=== PATIENT | female | born 1945 | race Caucasian/White ===

== ENCOUNTER 2017-09-08 10:34 | Outpatient (CLI) | payer OTHER ==
[~2017-09-08 10:34] MED LIST: ULTRACET PO
== END 2017-09-08 10:41 | disposition home or self-care (01) ==
LOC: SONOGRAMA 10:34
DX: E04.2 Nontoxic multinodular goiter (principal)

== ENCOUNTER 2018-03-03 10:56 | Outpatient (CLI) | payer OTHER ==
[~2018-03-03] VITALS: Ht 157.5 cm; Wt 79.4 kg
[2018-03-03] MEDS ORDERED: ZANTAC150 M3 PO (12:07)
== END 2018-03-03 11:15 | disposition home or self-care (01) ==
LOC: OFIC 805 10:56
DX: E04.2 Nontoxic multinodular goiter (principal); J31.0 Chronic rhinitis; J34.2 Deviated nasal septum; R49.8 Other voice and resonance disorders; J37.0 Chronic laryngitis; H61.23 Impacted cerumen, bilateral

== ENCOUNTER 2018-03-11 18:01 | Emergency (ER) | payer OTHER ==
[~2018-03-11] VITALS: Ht 157.5 cm; Wt 79.4 kg
[~2018-03-11 18:01] MED LIST changes: +ZANTAC150 M3 PO
[2018-03-11] MEDS ORDERED: HYZAAR 100-251 EACH (18:12)
[2018-03-11] MEDS ORDERED: GLIMEPIRIDE2 MG (18:13)
[2018-03-11] MEDS ORDERED: JANUMET XR 50-1 EAC1 (18:13)
[2018-03-11] MEDS ORDERED: LIPITOR40 MG (18:13)
[2018-03-11] MEDS ORDERED: NORVASC10 MG (18:13)
[2018-03-11] MEDS ORDERED: IRON325 MG (18:14)
== END 2018-03-11 22:39 | disposition home or self-care (01) ==
LOC: ER 18:01
DX: R00.2 Palpitations (principal)

== ENCOUNTER 2018-09-09 11:55 | Outpatient (CLI) | payer OTHER ==
[~2018-09-09] VITALS: Ht 152.4 cm; Wt 79.4 kg
[~2018-09-09 11:55] MED LIST changes: +GLIMEPIRIDE2 MG; +HYZAAR 100-251 EACH; +IRON325 MG; +JANUMET XR 50-1 EAC1; +LIPITOR40 MG; +NORVASC10 MG
== END 2018-09-09 12:15 | disposition home or self-care (01) ==
LOC: OFIC 805 11:55
DX: K21.0 Gastro-esophageal reflux disease with esophagitis (principal); R22.1 Localized swelling, mass and lump, neck; R05 Cough

== ENCOUNTER 2018-10-11 11:53 | Outpatient (CLI) | payer OTHER ==
[~2018-10-11] VITALS: Ht 157.5 cm; Wt 79.4 kg
== END 2018-10-11 12:10 | disposition home or self-care (01) ==
LOC: OFIC 805 11:53
DX: K21.0 Gastro-esophageal reflux disease with esophagitis (principal); R05 Cough

== ENCOUNTER 2019-04-19 16:03 | Emergency (ER) | payer OTHER ==
[~2019-04-19] VITALS: Ht 157.5 cm; Wt 79.8 kg
[2019-04-19] MEDS ORDERED: ARICEPT5 MG (16:27)
== END 2019-04-19 22:23 | disposition home or self-care (01) ==
LOC: ER 16:03
DX: B33.8 Other specified viral diseases (principal); B96.0 Mycoplasma pneumoniae [M. pneumoniae] as the cause of diseases classified elsewhere; R53.1 Weakness; N39.0 Urinary tract infection, site not specified